=== PATIENT | male | born 1955 | race Caucasian/White ===

== ENCOUNTER → 2016-05-11 | Outpatient (CLI) | payer BC ==
[2015-07-31 19:30] VITALS: BP 123/67
[~2016-05-11] MED LIST: ALBU2.5V13 NEB; ASPI-482 PO; BUDE10.22 IH; CITA40TA5 PO; FAMO20TA5 PO; IOHEXOL 180 MG/ML 10 ML VIAL. ONE; LISI-334 PO; LORA0.5T PO; VENTOLIN HFA18 GM INH; methylPREDNISolone ACETATE 40 MG/ML VIAL. ONE; methylPREDNISolone ACETATE 80 MG/ML VIAL. ONE
--- NOTE | 2016-05-12 02:38 | PAIN ---
DATE OF SERVICE: 05/11/2016 INITIAL CONSULTATION FOR PAIN CLINIC CHIEF COMPLAINT: Neck and left upper extremity pain. HISTORY OF PRESENT ILLNESS: This is a 61-year-old male who presents with history of pain for about 4 months without increasing in intensity. The patient reports that in ____ 2016, he fell going up the door on his camper. The steps were wet. He slipped and fell, landed on his left side causing significant pain in his neck as well as his left shoulder and arm. Since that time, the pain has been smoldering along. It was much worse at first, but now is still present and still very aggravating in the left base of the neck, shoulder, radiating to the anterior and posterior aspect of the upper arm, biceps, triceps region and in the posterior aspect of the forearm into the hand with some tingling in the fingers. The patient reports it is constant with tingling and numbness radiating to left arm, burning, changes with activity, worse with using his arm above his head or with any weightbearing activities, carrying items with his left arm, repetitive motion such as sawing or sanding. The patient reports exacerbation of pain. No symptoms on the right upper extremity. The patient reports pain with far left lateral rotation of his neck to the left, was making hard to drive his car with limited comfort with range of motion in his neck. The patient did have an MRI scan of the cervical spine dated 04/13/2016 showing moderate degenerative disk disease C5-C6 and C6-C7 with mild spondylosis, spinal stenosis at C6-C7 with ___ cord, lesser degree at C5-C6 with moderate narrowing of the right C5-C6 neural foramen and minimal narrowing of the left at C6-C7. The patient has tried gose-kns-[id number] Advil, Motrin, also Tylenol without significant improvement in pain. He has been doing some stretching of his neck and upper back and shoulders, but no formal physical therapies or other treatments have been performed by his report. The patient rates his disability rating from 0 to 10, 10 being the worst, as an 8 with family and home responsibilities; 7 with recreation and occupation; 6 with social activity; 9 with sexual behavior, self-care and life support activities. The patient reports no loss of motor function of his left upper extremity, but significant pain with repetitive motion and fatigability much more so than on the right side and he is right handed. PAST MEDICAL HISTORY: Significant for shortness of breath, COPD, hypertension, arthritis. PREVIOUS SURGERY: Include lumbar laminectomy in 2007 x 2, previous vasectomy, bilateral iliac artery stents, and fractured nose repair. CURRENT MEDICATIONS: Include albuterol inhaler, lisinopril, daily baby aspirin, lorazepam, Symbicort, citalopram and famotidine. ALLERGIES: The patient has no known drug allergies. FAMILY HISTORY: Significant for heart disease, diabetes, asthma, and COPD. SOCIAL HISTORY: The patient reports does not smoke, does not drink alcohol. He is and lives with his spouse locally in [place], [place]. REVIEW OF SYSTEMS: The patient's review of systems is positive for those items mentioned in history of present illness. All systems reviewed and otherwise negative. It is complete, full and well documented on the patient's chart. PHYSICAL EXAMINATION: VITAL SIGNS: Today, the patient's blood pressure is 151/101, pulse 75, respirations 18, temperature 98.2 degrees Fahrenheit, height is 6 feet 1 inch, weight is 287 pounds. GENERAL: The patient is awake, alert, oriented, appropriate, very pleasant demeanor. HEENT: Shows normocephalic, atraumatic. Extraocular movements are intact and symmetrical. Oral cavity shows mucous membranes are moist and pink. Dentition is intact. NECK: Shows anterior throat supple without palpable lymphadenopathy noted. Swallow reflex is symmetrical. BACK: The patient's posterior cervical musculature shows some moderate tenderness with palpation in the inferior aspect of the cervical paraspinous musculature, more on the left side than the right, but is symmetrical in appearance. No evidence of atrophy or hypertrophy. Normal appearing cervical lordotic curvature into the left lateral trapezius, also some moderate tenderness with palpation diffusely, but is symmetrical again on appearance with the right side. The patient's thoracic spine shows normal kyphotic curvature, slight flattening of lumbar lordotic curvature with well-healed surgical scar in this region. CHEST: Shows normal on inspection. Breath sounds are clear to auscultation bilaterally. HEART: Shows S1 and S2 clear. ABDOMEN: Normal in appearance. With palpation, it is soft, nontender, nondistended. No palpable organomegaly is noted. No rebound or guarding demonstrated. EXTREMITIES: Upper extremities showed deep tendon reflexes at 2+ in the biceps and triceps tendons are equal. Motor exam is strong with 5/5 strategic planning manager strength bilaterally and approximately 4/5 with left triceps flexion and 5/5 with bilateral biceps flexion. Peripheral pulses are 2+ radial distribution. No peripheral edema is noted. No clubbing, no cyanosis. Upper extremities are warm and dry to touch, equal in color and appearance. The patient shows good shoulder shrug with good strength without loss of strength on resistance, some minor pain reported in the posterior upper arm with shoulder shrug against resistance, but no loss of strength. This is true with abduction of the shoulder to 90 degrees. Minor pain in the left shoulder posterior triceps region on the left. No loss of strength on resistance with abduction. IMPRESSION: 1. This is a 61-year-old male with approximately 4-month history of increasing pain in the base of the neck, left upper extremity after a fall. 2. MRI scan as noted. 3. Hypertension. 4. Arthritis. 5. Peripheral vascular disease. PLAN: Options were discussed with the patient including conservative medical management, physical therapy, interventional technique. He would like to pursue interventional techniques. We discussed a cervical epidural steroid injection using description as well as anatomical models to describe the procedure. Risks were then discussed including, but not limited to bleeding, infection, possibility of epidural hematoma and subsequent neurological compromise, dural punctures, headaches, spinal cord and/or nerve damage, side effects of steroid medication and poor results regarding pain control. The patient understands and wished to proceed. The patient will return to the clinic in approximately 2 weeks for followup. He was counseled to return appointment, activity level and side effects to be aware of. DIAGNOSIS: Cervical radiculopathy with cervical spinal stenosis, cervical degenerative disk disease. PROCEDURE: Cervical epidural steroid injection using translaminar approach at the C6-C7 level with fluoroscopic guidance under sterile prep and drape and using local anesthetic. MEDICATION INJECTED: 120 mg Depo-Medrol plus 5 mL of preservative-free normal saline and 2 mL of Isovue for contrast. CONDITION AT DISCHARGE: Stable. The patient tolerated the procedure well, had no complications. PALOMO MÁRQUEZ MD DR: KELSI/timo JOB#: [id number] / [id number] Jaime Pham MD
== END ==
LOC: PNCL 08:09
PROVIDERS: ATTEND Anesthesiology
DX: M50.123 Cervical disc disorder at C6-C7 level with radiculopathy (principal); M48.02 Spinal stenosis, cervical region; I73.89 Other specified peripheral vascular diseases; I10 Essential (primary) hypertension; M18.9 Osteoarthritis of first carpometacarpal joint, unspecified
CPT/HCPCS: 62321; J1030; J1040

== ENCOUNTER → 2016-05-25 | Outpatient (CLI) | payer BC ==
[2015-07-31 19:30] VITALS: BP 123/67
--- NOTE | 2016-05-26 00:15 | PAIN ---
DATE OF SERVICE: 05/25/2016 DIAGNOSES: Cervical radiculopathy with cervical spinal stenosis and cervical degenerative disk disease. HISTORY OF PRESENT ILLNESS: The patient is a 61-year-old male, who returns for followup status post cervical epidural steroid injection x 1. The patient reports 50% improvement initially, but now weaning to the left and that at the base of the neck and left upper extremity. The patient reports the pain is 8 on a scale of 10 returning to near baseline, but not quite, a dull aching pain radiating to the left arm, posterior shoulder, posterior upper arm, posterior forearm with tingling, numbness still in the hand, which is beginning to become more noticeable. The patient reports otherwise he was doing well for about the first 2 weeks or so, but the pain is returning now over the past several days. The patient reports no symptoms on the right upper extremity. Still some significant pain in the left is noted. No new motor or sensory deficits, no other complaints. PHYSICAL EXAMINATION: VITAL SIGNS: Today, the patient's blood pressure is 150/76, pulse 80, respirations 18, temperature 98.0 degrees Fahrenheit, height 6 feet 1 inch, weight is 276 pounds. GENERAL: The patient is awake, alert, oriented, appropriate, very pleasant demeanor. HEENT: Head shows normocephalic, atraumatic. Extraocular movements are intact and symmetrical. The patient wears eyeglasses. Oral cavity, mucous membranes are moist and pink. Dentition is intact. NECK: Shows anterior throat supple without palpable lymphadenopathy noted. Swallow reflex is symmetrical. CHEST: Shows normal on inspection. Breath sounds are clear to auscultation bilaterally. HEART: Shows S1 and S2 clear. ABDOMEN: Soft, nontender, nondistended. No palpable organomegaly is noted. No rebound or guarding demonstrated. BACK: Shows spine grossly in midline, some tattooing in the upper back and shoulders. Cervical lordotic curvature is normal appearing as is thoracic kyphotic curvature and lumbar lordotic curvature. Cervical paraspinous musculature shows some pwuw-wi-[id number] tenderness in the inferior aspect of the cervical paraspinous muscles in the left trapezius with palpation only, but appears roughly symmetrical on inspection. No trigger points or radiation of pain. The patient shows good rotational motion of cervical spine, both laterally greater than 45 degrees, as well as full extension, full forward flexion without significant pain reported ____. EXTREMITIES: Upper extremity showed deep tendon reflexes 2+ in the biceps and triceps tendons. 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 Options were discussed with the patient. The patient's old chart was reviewed and his current medication regimen updated. Current review of systems updated today as well. We will proceed with a second cervical epidural steroid injection today with fluoroscopic guidance. Risks were again discussed including, but not limited to bleeding, infection, possibility of epidural hematoma, subsequent neurologic compromise, dural puncture, headaches, spinal cord and/or nerve damage, side effects of steroid medication, and poor results regarding pain control. The patient understands and wishes to proceed. The patient will return to clinic in approximately 2 weeks for followup. He was counseled as to return appointment, activity level, and side effects to be aware of. DIAGNOSIS: Cervical radiculopathy with cervical degenerative disk disease and cervical spinal stenosis. PROCEDURE: Cervical epidural steroid injection with ____ fluoroscopic guidance translaminar approach at the C6-C7 level with sterile prep and drape using local anesthetic. Medications injected 120 mg Depo-Medrol plus 5 mL of preservative-free normal saline and 2 mL of Isovue for contrast. Condition at discharge is stable. The patient tolerated procedure well, had no complications. PALOMO MÁRQUEZ MD DR: KELSI/timo JOB#: [id number] / [id number]
== END ==
LOC: PNCL 08:49
PROVIDERS: ATTEND Anesthesiology
DX: M50.123 Cervical disc disorder at C6-C7 level with radiculopathy (principal); M48.02 Spinal stenosis, cervical region
CPT/HCPCS: 62321; J1030; J1040

== ENCOUNTER → 2016-06-08 | Outpatient (CLI) | payer BC ==
[2015-07-31 19:30] VITALS: BP 123/67
[~2016-06-08] MED LIST changes: -ALBU2.5V13 NEB; +ALBU2.5V14 NEB; -IOHEXOL 180 MG/ML 10 ML VIAL. ONE; -methylPREDNISolone ACETATE 40 MG/ML VIAL. ONE; -methylPREDNISolone ACETATE 80 MG/ML VIAL. ONE
--- NOTE | 2016-06-10 01:50 | PAIN ---
DATE OF SERVICE: 06/08/2016 DIAGNOSES: Cervical radiculopathy, cervical spinal stenosis, and cervical degenerative disk disease. HISTORY OF PRESENT ILLNESS: The patient is a 61-year-old male who returns for followup status post cervical epidural steroid injections x 2. The patient reports approximately 70-75% improvement in the base of the neck, and right shoulder and left arm. The patient reports that the arm is doing much better near 100% with the arm and only some pain in the base of the neck and shoulder, now at this time as a dull aching pain, very minimal compared to what it was prior. The patient reports he is increasing his activity with greater ease and comfort, using his arm up over his head on his left side, he is able to get dressed much more easily, uses his arms for repetitive motions and is sleeping better at night. The patient reports no new motor or sensory deficits or other complaints. He reports it as a dull aching pain, again much improved and very happy with his progress thus far. PHYSICAL EXAMINATION: VITAL SIGNS: The patient's blood pressure is 162/103, pulse ____, respirations 18, temperature 97.9 degrees Fahrenheit, weight is 278 pounds. GENERAL: The patient is awake, alert, oriented, appropriate and very pleasant demeanor. HEENT: Head shows normocephalic and atraumatic. Extraocular movements are intact and symmetrical. Oral cavity shows mucous membranes are moist and pink. Dentition is intact. NECK: Shows anterior throat supple without palpable lymphadenopathy noted. Swallow reflex is symmetrical. CHEST: Shows normal on inspection. Breath sounds are clear to auscultation bilaterally. ABDOMEN: Soft, nontender, nondistended. No palpable organomegaly. No rebound or guarding demonstrated. BACK: Shows spine grossly midline. Cervical paraspinous muscle shows some very mild tenderness over the inferior aspect of the cervical paraspinous musculature with palpation without radiation into the superior, medial, or lateral trapezius, slightly more tender on the left than the right in the superior medial trapezius without atrophy, hypertrophy, no trigger points. Right side is symmetrical and supple without tenderness. EXTREMITIES: Upper extremity showed deep tendon reflexes 2+ in the biceps and triceps tendons. Motor exam is approximately still 4/5 with left bail agent strength and 5/5 on the right, but intact and strong bilaterally with 5/5 biceps and triceps flexion bilaterally. PLAN: Options were discussed with the patient. The patient's old chart was reviewed as his current medication regimen updated. Current review of systems updated today as well. We will hold on any further injections as he is doing much better and we would like to wait on these. The patient was encouraged to increase his activity as tolerated, maintain in some stretching and strengthening exercises of the neck, shoulders, and upper back and arms. We will follow up on as needed basis at this time. PALOMO MÁRQUEZ MD DR: KELSI/timo JOB#: [id number] / [id number]
== END | disposition home or self-care (01) ==
LOC: PNCL 08:48
PROVIDERS: ATTEND Anesthesiology
DX: M50.10 Cervical disc disorder with radiculopathy, unspecified cervical region (principal); M48.02 Spinal stenosis, cervical region
CPT/HCPCS: 99212

== ENCOUNTER → 2016-08-17 | Day surgery (SDC) | payer BC ==
[~2016-08-17] MED LIST changes: +IV RINGERS,LACTATED 1000ML 1,000 ML IV SCH; +PROPOFOL 20 ML IV ONE
[2016-08-17 09:15] VITALS: BP 117/58
== END | disposition home or self-care (01) ==
LOC: ENDOS 07:34
PROVIDERS: ATTEND Internal Medicine Gastroenterology
DX: K22.2 Esophageal obstruction (principal); K29.70 Gastritis, unspecified, without bleeding; F41.9 Anxiety disorder, unspecified; J44.9 Chronic obstructive pulmonary disease, unspecified; J45.909 Unspecified asthma, uncomplicated; E78.00 Pure hypercholesterolemia, unspecified; I10 Essential (primary) hypertension; F32.9 Major depressive disorder, single episode, unspecified; Z83.3 Family history of diabetes mellitus; Z83.71 Family history of colonic polyps; Z82.49 Family history of ischemic heart disease and other diseases of the circulatory system; Z98.52 Vasectomy status
CPT/HCPCS: 99156; J2704

== ENCOUNTER → 2017-05-21 | Outpatient (CLI) | payer BC | END | disposition home or self-care (01) | LOC: KCIC 13:48 | DX: J44.9 Chronic obstructive pulmonary disease, unspecified (principal); J40 Bronchitis, not specified as acute or chronic; J98.11 Atelectasis | CPT/HCPCS: 71046 ==

== ENCOUNTER → 2017-07-05 | Outpatient (CLI) | payer BC | END | disposition home or self-care (01) | LOC: ECHO 08:58 | DX: I36.1 Nonrheumatic tricuspid (valve) insufficiency (principal); I51.7 Cardiomegaly; R55 Syncope and collapse | CPT/HCPCS: 93306 ==

== ENCOUNTER → 2020-03-29 | Outpatient (CLI) | payer BC ==
[2016-08-17 09:15] VITALS: BP 117/58
[~2020-03-29] MED LIST changes: -IV RINGERS,LACTATED 1000ML 1,000 ML IV SCH; -PROPOFOL 20 ML IV ONE
--- NOTE | 2020-03-29 15:56 | RAD ---
EXAM: Bilateral lower extremity arterial Doppler sonogram. HISTORY: Fibromuscular dysplasia. Peripheral artery disease. TECHNIQUE: Gonzalez scale and color Doppler sonographic imaging of the lower extremity arteries with spectral waveform analysis was performed. COMPARISON: None. FINDINGS: There are normal triphasic waveforms and peak systolic velocities throughout the lower extremity arteries. No hemodynamically significant stenosis or occlusion is seen. There is an incidental right popliteal cyst measuring 6.4 x 2.3 x 1.2 cm. IMPRESSION: 1. No Doppler evidence of hemodynamically stenosis or occlusion involving the lower extremity arteries. 2. Right Castrejon's cyst measuring 6.4 cm. Electronically signed by: Matilde Cardenas MD (03/29/2020 3:52 PM) [facility]
== END ==
LOC: US 13:41
PROVIDERS: ATTEND Family Medicine
DX: M71.21 Synovial cyst of popliteal space [Baker], right knee (principal); I77.3 Arterial fibromuscular dysplasia; I73.9 Peripheral vascular disease, unspecified
CPT/HCPCS: 93925

== ENCOUNTER → 2020-09-09 | Outpatient (CLI) | payer MEDICARE ==
[2016-08-17 09:15] VITALS: BP 117/58
[~2020-09-09] MED LIST changes: -LISI-334 PO; +LISI20TA18 PO
--- NOTE | 2020-09-09 14:14 | KCIC ---
STUDY: MRI of the right knee without contrast INDICATION: Right knee pain. COMPARISON: 08/29/2020 radiographs TECHNIQUE: Multiplanar MR imaging of the right knee performed without the use of intravenous or intra -articular contrast. FINDINGS: Menisci: Oblique/undersurface tear of the medial meniscus from the mid body to the posterior horn/keely t junction. Undersurface and free edge fraying of the posterior horn. A tiny amount of meniscal tissu e extends downward towards the meniscotibial recess along the mid meniscal body, image 14 series 8. H eterogeneous signal at the lateral meniscus posterior horn at least in part related to myxoid degener ation and not meeting imaging criteria to be considered a tear, image 14 series 8. Cruciate ligaments: Intact. Collateral ligaments: Intact. Tendons: No focal tear or advanced tendinosis. Cartilage: Patellofemoral: High-grade/full-thickness chondrosis along the majority of the lateral facet. Less pr onounced chondrosis at the median ridge and medial facet. The trochlea exhibits extensive chondrosis with high-grade/full-thickness loss along the majority of the lateral trochlea and trochlear groove. Lateral compartment: Scattered predominantly partial thickness chondrosis. Medial compartment: Multifocal partial thickness chondrosis with some areas of high-grade loss such a s at the weightbearing and far posterior nonweightbearing medial femoral condyle. Bones: Tricompartmental osteophyte formation. No acute fracture or focally aggressive marrow signal a bnormality. Mild degenerative lateral patellar subluxation. Miscellaneous: Small knee joint effusion. Moderate-sized, complex Castrejon's cyst. Scattered subcutaneou s edema. IMPRESSION: 1. Several areas of chronic tearing involving the medial meniscus as outlined in the body the report . No focal tear of the lateral meniscus. Intact cruciate and collateral ligaments. 2. 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 3. Small knee joint effusion. Moderate sized, complex Castrejon's cyst. Electronically signed by: RAMONA PARIS MD (09/09/2020 2:12 PM) [id number]
== END ==
LOC: KCIC MRI 07:53
PROVIDERS: ATTEND Orthopaedic Surgery
DX: S83.241A Other tear of medial meniscus, current injury, right knee, initial encounter (principal); M25.461 Effusion, right knee; M71.21 Synovial cyst of popliteal space [Baker], right knee; X58.XXXA Exposure to other specified factors, initial encounter; Y93.89 Activity, other specified; Y92.89 Other specified places as the place of occurrence of the external cause; Y99.8 Other external cause status
CPT/HCPCS: 73721

== ENCOUNTER → 2020-10-12 | Outpatient (CLI) | payer MEDICARE ==
[2016-08-17 09:15] VITALS: BP 117/58
[~2020-10-12] MED LIST changes: +ALPR0.5T6 PO; +ATOR20TA58 PO; +BREO ELLIPTA 21 EACH IH; +DONE5TAB7 PO; +HYDR-2765 PO; +MELO15TA23 PO; +MEMA10TA PO; +PANT40TA77 PO
== END ==
LOC: LAB 09:42
PROVIDERS: ATTEND Orthopaedic Surgery
DX: Z01.812 Encounter for preprocedural laboratory examination (principal); Z20.822 Contact with and (suspected) exposure to COVID-19; S83.231D Complex tear of medial meniscus, current injury, right knee, subsequent encounter; X58.XXXD Exposure to other specified factors, subsequent encounter
CPT/HCPCS: U0003; U0005

== ENCOUNTER 2020-10-14 07:52 | Day surgery (SDC) | payer MEDICARE ==
[~2020-10-14] VITALS: Ht 185.4 cm; Wt 128.0 kg
[~2020-10-14 07:52] MED LIST changes: -HYDR-2765 PO; +HYDROmorphone 2 MG/ML VIAL IVP PRN; +IV RINGERS,LACTATED 1000ML 1,000 ML IV SCH; +MORPHINE SULFATE 2 MG/ML VIAL. IVP PRN; +PROCHLORPERAZINE 10 MG/2 ML VIAL. IVP PRN; +fentaNYL PF VIAL 100 MCG/2 ML VIAL IVP PRN
[2020-10-14] MEDS ORDERED: SEVOFLURANE 61 TO 120 MINUTES. IH ONE (08:24)
[2020-10-14] MEDS ORDERED: ONDANSETRON PF 4 MG/2 ML VIAL. ONE (08:26)
[2020-10-14] MEDS ORDERED: DEXAMETHASONE SOD PHOS 4 MG/ML VIAL ONE (08:26)
[2020-10-14] MEDS ORDERED: LIDOCAINE 2% PF 5 ML VIAL. ONE (08:26)
[2020-10-14] MEDS ORDERED: PROPOFOL 10 MG/ML (20ML) VIAL. IV ONE (08:26)
[2020-10-14] MEDS ORDERED: BUPIVACAINE-EPI 0.5% 30 ML VIAL KIT. ONE (08:28)
[2020-10-14] MEDS ORDERED: ROPIVacaine 0.5% PF 20 ML VIAL. ONE (08:28)
[2020-10-14] MEDS ORDERED: FAMOTIDINE 20 MG/2 ML VIAL ONE ×2 (08:34→09:22)
[2020-10-14] MEDS ORDERED: HYDR-2765 PO (09:13)
--- NOTE | 2020-10-14 09:15 | DISCH ---
DISCHARGE INSTRUCTIONS Condition on Discharge Condition on Discharge: Stable Activity After Discharge Activity Instructions for Disc: Progressive ambulation Weight Bearing Status after Di: As tolerated Diet after Discharge Diet after Discharge: Regular Wound Incision Care Wound/Incision Care: Ice to area for comfort, Keep wound elevated, Change dressing (Remove dressing in 2 days may then shower, no soaking until sutures removed) Contacting the after DC Call your doctor for: Concerns you may have (Call if having severe deep calf pain or persistent swelling getting more severe despite elevation) Follow-Up Follow up with: Dr. Hamilton or Brandon 10 days AUDREY HAMILTON MD Oct 14, 2020 09:15
[2020-10-14] MEDS ORDERED: HYDROcodone/APAP 7.5/325MG 1 TAB TABLET PO ONE (10:15)
--- NOTE | 2020-10-14 10:23 | PDOC4 ---
Operative Note Operative Note Date of surgery: 10/14/2020 Preoperative diagnosis: Right knee meniscal tear Postoperative diagnosis: Same with displaceable posterior horn medial meniscus tear, chondral flap tear medial femoral condyle, free edge tear lateral meniscus body and posterior horn, very large medial parapatellar plica Operative procedure: Right knee arthroscopy partial medial and lateral meniscectomy chondroplasty medial femoral condyle and excision medial parapate llar plica Surgeon: Joy Assist: Alphonse Matos dietetic assistant Anesthesia: General with adductor canal block Estimated blood loss: 5 cc Complications: None Operative indications: Please see my preoperative orthopedic clinic note for detailed operative indications and note that we had reviewed the planned treatment of the torn meniscus and addressing the mechanical aspects of the meniscus tear in the knee and my inability to undo any degenerative type findings but I would address any other pathological findings to the best my ability. We talked about the possibility of infection blood clots continued pain nerve or blood vessel damage medical or other anesthetic complications among others. He wishes to proceed with surgical evaluation and treatment Operative text: Patient was identified procedure verified patient placed in the supine position on the operating table. After adequate amounts of general anesthesia with adductor canal block were obtained the right lower extremity was prepped and draped in standard sterile fashion with a thigh tourniquet. After timeout was performed patient procedure identified and verified the right lower extremity was exsanguinated by Esmarch bandage tourniquet inflated to 300 mmHg a lateral portal was established medial portal established using spinal needle localization and the knee joint was systematically examined. He was noted to have a displaceable tear of the posterior horn medial meniscus which was debrided back to stable tissue and radius appropriately to avoid any further stress riser using the arthroscopic punch and shaver. Chondral flap tear of the weightbearing surface of the medial femoral condyle was likewise noted to be partial-thickness in nature and was trimmed back to stable tissue with the arthroscopic shaver. ACL was probed and found to be intact. He did have good preservation of the lateral compartment cartilage surfaces and a free edge tear and fraying of the lateral meniscus involving the body and posterior horn which were gently trimmed back to stable tissue using the arthroscopic punch and shaver. The large medial patellar plica was excised to avoid any rubbing on the medial femoral condyle and he was noted to have ltpc-cn-weea degeneration of the cartilage over a majority of the patellofemoral joint with no unstable cartilage or debridement necessary. Likewise no loose bodies noted in the gutters or suprapatellar pouch. Joint was then drained of arthroscopic fluid fat pad and portal areas were injected with half percent Marcaine portals were closed with nylon suture sterile soft dressings were applied. Toes were noted be warm pink following deflation of the tourniquet patient returned to recovery room stable condition having tolerated procedure well. Alphonse packer assisted in patient positioning prepping draping positioning of the limb for accessibility as well as closure and dressings AUDREY SPENCE MD Oct 14, 2020 10:23
[2020-10-14 11:00] VITALS: BP 143/78
== END 2020-10-14 14:00 | disposition home or self-care (01) ==
LOC: SURG 07:52
PROVIDERS: ATTEND Orthopaedic Surgery
DX: S83.231A Complex tear of medial meniscus, current injury, right knee, initial encounter (principal); S83.281A Other tear of lateral meniscus, current injury, right knee, initial encounter; I25.10 Atherosclerotic heart disease of native coronary artery without angina pectoris; I10 Essential (primary) hypertension; E78.00 Pure hypercholesterolemia, unspecified; J44.9 Chronic obstructive pulmonary disease, unspecified; M19.90 Unspecified osteoarthritis, unspecified site; F41.9 Anxiety disorder, unspecified; F32.9 Major depressive disorder, single episode, unspecified; Z85.828 Personal history of other malignant neoplasm of skin; Z79.82 Long term (current) use of aspirin; Z79.899 Other long term (current) drug therapy; Z98.890 Other specified postprocedural states; Z72.89 Other problems related to lifestyle; X58.XXXA Exposure to other specified factors, initial encounter; Y93.89 Activity, other specified; Y92.89 Other specified places as the place of occurrence of the external cause; Y99.8 Other external cause status
CPT/HCPCS: 29880; 64447; A4930; J0690; J1100; J2270; J2405; J2704; J2795; J3010; J3490

== ENCOUNTER → 2021-03-08 | Outpatient (CLI) | payer MEDICARE ==
[~2021-03-08] MED LIST changes: -CITA40TA5 PO; +CITA40TA6 PO; +HYDR-2765 PO; -HYDROmorphone 2 MG/ML VIAL IVP PRN; -IV RINGERS,LACTATED 1000ML 1,000 ML IV SCH; -MORPHINE SULFATE 2 MG/ML VIAL. IVP PRN; -PROCHLORPERAZINE 10 MG/2 ML VIAL. IVP PRN; -fentaNYL PF VIAL 100 MCG/2 ML VIAL IVP PRN
--- NOTE | 2021-03-09 10:55 | SLEEP ---
DATE OF STUDY: 03/08/2021 SLEEP STUDY ATTENDING PHYSICIAN: Jaime Ellison MD. The patient is a 66-year-old who weighs 280 pounds with a BMI of 36.9. The patient's Paradox score was 11. The patient underwent home sleep study performed at [facility]. Total recording time was 556 minutes. During the night study, the patient had 46 obstructive apneas, 1 central apnea, 16 mixed apneas and 120 hypopneas. The patient's AHI was 19.7 per hour. Nocturnal oximetry study revealed an average oxygen saturation of 90% with a lowest of 80%. 160 minutes were spent with oxygen saturation less than 90%. Mean heart rate 58 beats per minute. IMPRESSION: 1. Moderate obstructive sleep apnea at an AHI of 19.7 per hour. 2. Nocturnal hypoxia secondary to obstructive sleep apnea and suspected hypoventilation. RECOMMENDATIONS: 1. The patient will benefit from in-lab CPAP titration study. Alternatively, home auto-CPAP can be arranged. 2. Once the patient is optimally treated with CPAP, then follow up in 4-6 weeks to assess compliance and to document clinical improvement. 3. Weight loss is strongly advised. 4. 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 5. Cautioned regarding driving until symptoms of sleep apnea resolve with above recommendations. APRYL/ILAN DR: Spencer TID: [id number] CC: Jaime ELLISON MD
== END ==
LOC: RT 11:05
PROVIDERS: ATTEND Family Medicine
DX: G47.33 Obstructive sleep apnea (adult) (pediatric) (principal); G47.34 Idiopathic sleep related nonobstructive alveolar hypoventilation; G47.10 Hypersomnia, unspecified
CPT/HCPCS: G0399

== ENCOUNTER → 2021-03-15 | Outpatient (CLI) | payer MEDICARE ==
--- NOTE | 2021-03-16 09:00 | SLEEP ---
DATE OF STUDY: 03/15/2021 SLEEP STUDY ATTENDING PHYSICIAN: Dr. Barber. The patient is 66 years old, who weighs 280 pounds with a BMI of 37. The patient's [place] score was 6. The patient had a previous home sleep study and was found to have moderate SKYLER at an AHI of 19.7 per hour. The patient also had nocturnal hypoxia. The patient returned to [facility] for CPAP titration study. During the night study, the patient spent 531 minutes in bed and slept for 427 minutes with a sleep efficiency of 80%. Sleep latency was 40 minutes with a REM latency of 246 minutes. Sleep architecture showed normal stage 1 sleep, increased stage 2 sleep, absent slow wave and reduced REM sleep. The patient was started on CPAP at 5 cm water and titrated up to 7 cm water. At the final pressure, the patient slept for 188 minutes. The patient's AHI was reduced to 0 per hour. The patient's oxygen saturation remained above 90%. The patient had supine as well as REM sleep. No significant PLMS were observed. EKG monitoring revealed a mean heart rate of 67 beats per minute. No sustained arrhythmias observed. IMPRESSION: 1. Moderate obstructive sleep apnea, diagnosed by previous home sleep study. 2. No clinically significant periodic limb movements in sleep. RECOMMENDATIONS: 1. CPAP at 7 cm water completely eliminated the patient's sleep apnea and should be used on a nightly basis. 2. Follow up in 4-6 weeks to assess compliance with CPAP and to document clinical improvement. 3. Weight loss is advised. 4. Avoid [employer] depressants. 5. Cautioned regarding driving until symptoms of sleep apnea resolve with the use of CPAP. 6. The patient to use large size nasal pillows with chin strap. KENTRELL DR: Spencer TID: [id number]
== END ==
LOC: RT 19:07
PROVIDERS: ATTEND Family Medicine
DX: G47.33 Obstructive sleep apnea (adult) (pediatric) (principal)
CPT/HCPCS: 95811